=== PATIENT | male | born 1980 | race Two or more races ===

== ENCOUNTER 2017-02-23 11:31 | Emergency (ER) | payer SELFPAY ==
[~2017-02-23] VITALS: Ht 182.9 cm; Wt 72.6 kg
[2017-02-23 11:45] VITALS: BP 133/66
--- NOTE | 2017-02-23 12:47 | PHYS DOC ---
Past Medical History Past Medical History: Other Additional Past Medical Histor: HEMORRHOIDS Past Surgical History: No Surgical History Alcohol Use: None Drug Use: Marijuana Adult General Chief Complaint Chief Complaint: HEMORRHOIDS HPI HPI Patient is a 36 year old male presents to the emergency department with c/o hemorrhoids. Patient states that he had cut open the hemorrhoid on Friday and has had continuous bleeding. He denies any lightheadedness or dizziness. He denies any hard stools at the current time. Denies any fever, chills or any abdominal pain or discomfort. Review of Systems Review of Systems Constitutional: Denies fever or chills [] Eyes: Denies change in visual acuity, redness, or eye pain [] HENT: Denies nasal congestion or sore throat [] Respiratory: Denies cough or shortness of breath [] Cardiovascular: No additional information not addressed in HPI [] GI: Denies abdominal pain, nausea, vomiting, bloody stools or diarrhea. C/o hemorrhoid bleeding Musculoskeletal: Denies back pain or joint pain [] Integument: Denies rash or skin lesions [] Neurologic: Denies headache, focal weakness or sensory changes [] Endocrine: Denies polyuria or polydipsia [] All other systems were reviewed and found to be within normal limits, except as documented in this note. Physical Exam Physical Exam Constitutional: Well developed, well nourished, no acute distress, non-toxic appearance. [] HENT: Normocephalic, atraumatic, bilateral external ears normal, oropharynx moist, no oral exudates, nose normal. [] Eyes: PERRLA, EOMI, conjunctiva normal, no discharge. [] Neck: Normal range of motion, no tenderness, supple, no stridor. [] Cardiovascular:Heart rate regular rhythm, no murmur [] Lungs & Thorax: Bilateral breath sounds clear to auscultation [] Skin: Warm, dry, no erythema, no rash. [] Extremities: No tenderness, no cyanosis, no clubbing, ROM intact, no edema. [] Neurologic: Alert and oriented X 3, normal motor function, normal sensory function, no focal deficits noted. [] Psychologic: Affect normal, judgement normal, mood normal. [] Rectal area noted to have thrombosed hemorrhoids from the 7-9 area that is hard with no drainage noted Current Patient Data Vital Signs Vital Signs Date Time Temp Pulse Resp B/P (MAP) Pulse Ox O2 Delivery O2 Flow Rate FiO2 02/23/17 11:45 98.5 64 16 99 Room Air 98.5 EKG EKG [] Radiology/Procedures Radiology/Procedures [] Course & Med Decision Making Course & Med Decision Making Pertinent Labs and Imaging studies reviewed. (See chart for details) Recommended warm sitz baths 5 times a day. Recommended he follow up with a colorectal surgeon. Patient will be discharged home in stable condition. Recommended that he use Colace to help with bowel movements to prevent straining. Patient will be discharged home in stable condition. Patient will be placed on Augmentin for the next 10 days [I've spoken with the patient and/or caregivers. I've explained the patient's condition, diagnosis and treatment plan based on information available to me at this time. I've answered the patient's and/or caregivers questions and addressed any concerns. The patient and/or caregivers have a good understanding the patient's diagnosis, condition and treatment plan as can be expected at this point. Vital signs have been stabilized. The patient's condition is stable for discharge from the emergency department. The patient will pursue further outpatient evaluation with her primary care provider or other designated consulting physician as outlined in the discharge instructions. Patient and/or caregivers are agreeable to this plan of care and follow-up instructions have been explained in detail. The patient and/or caregivers have received these instructions in written format and expressed understanding of these discharge instructions. The patient and her caregivers are aware that if any significant change in condition or worsening of symptoms should prompt him to immediately return to this of the closest emergency department. If an emergent department is not readily available I would encourage him to call 911. ] Dragon Disclaimer Dragon Disclaimer This electronic medical record was generated, in whole or in part, using a voice recognition dictation system. Departure Departure Impression: Primary Impression: Thrombosed hemorrhoids Disposition: HOME, SELF-CARE Condition: STABLE Referrals: NO PCP (PCP) Patient Instructions: Hemorrhoids Additional Instructions: Activity as tolerated Warm sitz bath 5 times a day Colace to to soften the stools Followup with a colorectal doctor in 3-5 days Return to emergency department as needed for signs and symptoms that become worse. Dr. Ethan Huertas - [facility] [place], [place] Address: [address] [place] [address] [id number], [place] [address] Scripts Amoxicillin/Potassium Clav (AUGMENTIN [id number] TABLET) 1 Each Tablet 1 TAB PO BID, #20 TAB Prov: ARSH TURNER APRN 02/23/17 ARSH TURNER APRN Feb 23, 2017 12:47
[2017-02-23] MEDS ORDERED: AMOX1TAB61 PO (12:53)
== END 2017-02-23 13:01 | disposition home or self-care (01) ==
LOC: ER 11:31
DX: K64.5 Perianal venous thrombosis (principal)
CPT/HCPCS: 99283